=== PATIENT | female | born 1985 | race Caucasian/White ===

== ENCOUNTER 2019-03-18 22:26 | Emergency (ER) | payer OTHER ==
[~2019-03-18] VITALS: Ht 160 cm; Wt 82.7 kg
[~2019-03-18 22:26] MED LIST: PREN1TAB17 PO
[2019-03-18 22:34] VITALS: Ht 160 cm; Wt 82.7 kg
[2019-03-19] MEDS ORDERED: LORAZEPAM 2 MG INJ IV ONE (02:30)
[2019-03-19] MEDS ORDERED: HYDR25TA6 PO (04:34)
[2019-03-19] MEDS ORDERED: LISI40TA3 PO (04:34)
[2019-03-19] MEDS ORDERED: AMLO-145 PO (04:34)
[2019-03-19] MEDS ORDERED: LORA-441 PO (04:47)
--- NOTE | 2019-03-19 05:06 | ERD ---
ER Documentation Chief Complaint Chief Complaint HEADACHE AND DIZZINESS X3DAYS; HPI Is a 34 from headache and dizziness for the past 3 days. Severity is mild to moderate intensity no exacerbating relieving factors. She states is been under a lot of stress lately. Denies any focal neurologic complaints but denies any visual acuity changes. ROS All systems reviewed and are negative except as per history of present illness. Medications Home Meds Active Scripts Lorazepam* (Ativan*) 0.5 Mg Tablet, 0.5 MG PO Q8, #10 TAB Prov:JACKSON ZUÑIGA 03/19/19 Reported Medications Amlodipine Besylate* (Amlodipine Besylate*) 5 Mg Tablet, 5 MG PO QAM for 90 Da ys, #90 03/19/19 Lisinopril* (Lisinopril*) 40 Mg Tablet, 40 MG PO QAM for 30 Days, #30 03/19/19 Hydrochlorothiazide* (Hydrochlorothiazide*) 25 Mg Tab, 25 MG PO DAILY for 90 Days, #90 03/19/19 Discontinued Reported Medications Vit-Iron Fumarate-FA ( Tablet) 1 Each Tablet, 1 EACH PO DAILY 05/28/13 Allergies Allergies: Coded Allergies: No Known Allergy (Unverified , 03/19/19) PMhx/Soc History of Surgery: Yes (GALLBLADDER,C SECTION) Anesthesia Reaction: No Hx Neurological Disorder: No Hx Respiratory Disorders: No Hx Cardiac Disorders: Yes (HTN) Hx Psychiatric Problems: No Hx Miscellaneous Medical Probl: No Hx Alcohol Use: No Hx Substance Use: No Hx Tobacco Use: No Smoking Status: Never smoker Physical Exam Vitals Vital Signs Date Temp Pulse Resp B/P (MAP) Pulse Ox O2 O2 Flow FiO2 Time Delivery Rate 03/19/19 86 16 131/80 99 Room Air 04:00 (97) 03/19/19 87 16 180/90 100 Room Air 02:00 (120) 03/18/19 98.7 101 18 180/11 99 22:34 (67) Physical Exam Const: No acute distress Head: Atraumatic Eyes: Normal Conjunctiva ENT: Normal External Ears, Nose and Mouth. Neck: Full range of motion. No meningismus. Resp: Clear to auscultation bilaterally Cardio: Regular rate and rhythm, no murmurs Abd: Soft, non tender, non distended. Normal bowel sounds Skin: No petechiae or rashes Back: No midline or flank tenderness Ext: No cyanosis, or edema Neur: Awake and alert Psych: Normal Mood and Affect Result Diagram: 03/19/19 0154 03/19/19 0154 Results 24 hrs Laboratory Tests Test 03/19/19 01:54 White Blood Count 8.3 10^3/ul Red Blood Count 4.77 10^6/ul Hemoglobin 13.5 g/dl Hematocrit 41.6 % Mean Corpuscular Volume 87.2 fl Mean Corpuscular Hemoglobin 28.3 pg Mean Corpuscular Hemoglobin Concent 32.5 g/dl Red Cell Distribution Width 13.0 % Platelet Count 305 10^3/UL Mean Platelet Volume 10.1 fl Immature Granulocytes % 0.200 % Neutrophils % 69.4 % Lymphocytes % 25.0 % Monocytes % 4.2 % Eosinophils % 1.0 % Basophils % 0.2 % Nucleated Red Blood Cells % 0.0 /100WBC Immature Granulocytes # 0.020 10^3/ul Neutrophils # 5.8 10^3/ul Lymphocytes # 2.1 10^3/ul Monocytes # 0.4 10^3/ul Eosinophils # 0.1 10^3/ul Basophils # 0.0 10^3/ul Nucleated Red Blood Cells # 0.0 10^3/ul Prothrombin Time 12.7 Sec Prothrombin Time Ratio 1.0 INR International Normalized Ratio 0.94 Activated Partial Thromboplast Time 29.5 Sec Sodium Level 145 mmol/L Potassium Level 3.2 mmol/L Chloride Level 106 mmol/L Carbon Dioxide Level 29 mmol/L Anion Gap 10 Blood Urea Nitrogen 11 mg/dl Creatinine 0.76 mg/dl Est Glomerular Filtrat Rate mL/min > 60 mL/min Glucose Level 111 mg/dl Calcium Level 9.7 mg/dl Current Medications Medications Dose Sig/Deonte Start Time Status Last (Trade) Ordered Route PRN Stop Time Admin Dose Reason Admin Lorazepam 1 mg ONCE ONCE 03/19/19 DC 03/19/19 (Ativan) IV 02:30 02:29 03/19/19 02:31 Procedures/MDM EKG: nsr, normal intervals, normal axis, impressiom: normal ekg Departure Diagnosis: Primary Impression: Headache Headache type: unspecified Headache chronicity pattern: unspecified pattern Intractability: not intractable Qualified Codes: R51 - Headache Condition: Stable Patient Instructions: Self-Care for Headaches, Anxiety Reaction MOGHADAM,JACKSON S. Mar 19, 2019 05:06
[2019-03-19 05:46] VITALS: BP 152/109; PULSE 93; RESP 21
== END 2019-03-19 05:47 | disposition home or self-care (01) ==
LOC: E/R 22:26
DX: R51 Headache (principal); R07.9 Chest pain, unspecified; I10 Essential (primary) hypertension
CPT/HCPCS: 36415; 70450; 71045; 80048; 85025; 85610; 85730; 96374; J2060; Z7502